=== PATIENT | male | born 1995 | race Two or more races ===

== ENCOUNTER → 2023-05-16 13:43 | Outpatient (REF) | payer OTHER, MEDICAID, SELFPAY | LOC: HO.SL 13:43 | PROVIDERS: PCP General Practice; Visit Provider General Practice | DX: R06.83 Snoring (principal); R40.0 Somnolence | CPT/HCPCS: 95806 ==

== ENCOUNTER → 2023-05-16 19:00 | Outpatient (BNV) | payer OTHER, SELFPAY | PROVIDERS: PCP General Practice; Visit Provider Internal Medicine | DX: R06.83 Snoring (principal); R40.0 Somnolence | CPT/HCPCS: 95806 ==

== ENCOUNTER 2025-01-04 12:58 | Outpatient (AMB) | payer OTHER, MEDICAID, SELFPAY ==
--- OUTSIDE RECORDS SUMMARY | 2025-01-04 13:03 | XMS_ITS | Clinical Summary ---
Author Organization [facility] it[facility] Address [address] [place] [address] Care Team Providers Care Vascular Ultrasound Technician Name Role Phone Unavailable Primary Care Provider Unavailabl e Social History Tobacco Use Types Packs/Day Years Used Date Smoking Tobacco: Never Assessed Sex and Gender Information Value Date Recorded Sex Assigned at Not on file Legal Sex Male 2:20 AM EST Gender Identity Not on file Sexual Orientation Not on file Plan of Treatment Health Maintenance Due Date Last Done Comments DTaP,Tdap,and Td Vaccines (1 - Tdap) 2014 Hepatitis B Vaccines (1 of 3 - 19+ 3-dose series) 2014 COVID-19 Vaccine (2023-2 5 season) 2024 Depression Screening 05/27/2024 Influenza Vaccine (#1) 2025 HIB Vaccines Aged Out No longer eligi ble based on patient's age to complete this topic HPV Vaccines Aged Out No longer eligi ble based on patient's age to complete this topic Hepatitis A Vaccines Aged Out No long er eligible based on patient's age to complete this topic IPV Vaccines Aged Out No longer eligi ble based on patient's age to complete this topic MMR Vaccines Aged Out No longer eligi ble based on patient's age to complete this topic Meningococcal ACWY Vaccine Aged Out N o longer eligible based on patient's age to complete this topic Meningococcal B Vaccine Aged Out No l onger eligible based on patient's age to complete this topic Pneumococcal Vaccine: Pediat rics (0 to 5 Years) and At-Risk Patients (6 to 49 Years) Aged Out No longer eligible b ased on patient's age to complete this topic RSV Immunization Patients Un jay 20 months Aged Out No longer eligible b ased on patient's age to complete this topic Varicella Vaccines Aged Out No longer eligible based on patient's age to complete this topic Advance Directives Documents on File Type Date Recorded Patient Imaging Engineer Expl anation Health Care Decision (hx) 03/24/2018 AD CHOLO DIRECTIVE
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
--- OUTSIDE RECORDS SUMMARY | 2025-01-04 13:03 | XMS_ITS | Encounter Summary ---
Author Organization [facility] Address [address] [place] [address] [address] [address] Care Team Providers Care Hand Clerical Verifier Name Role Phone Keesha Apodaca MD Primary Care Provider [phone] Reason for Visit * Reason Onset Date Comments Appointment Request 08/15/2022 Encounter Details Date Type Department Care Team (Late Contact Info) Description 08/15/2022 Telephone [facility] MEDICINE [address], [place] [id number] Keesha Apodaca MD [address] [place] [address] Appointment Request Social History Tobacco Use Types Packs/Day Years Used Date Smoking Tobacco: Never Assessed Sex and Gender Information Value Date Recorded Sex Assigned at Male 03/26/2022 10:37 AM EDT Legal Sex Male 10:37 AM EDT Gender Identity Male 03/26/2022 10:37 AM EDT Sexual Orientation Choose not to disclose 2021 10:37 AM EDT documented as of this encounter Miscellaneous Notes * Telephone Encounter - Gerald Barney - 08/15/2022 10:27 AM EDT Tc from pt requesting a physical exam. Mainframe Systems Administrator attempted to book with PCP, no available appts. Pt states wont mind being seeing by a different provider. Please contact pt at [phone] documented in this encounter Plan of Treatment Upcoming Encounters Date Type Department Care Team (Late st Contact Info) Description 02/19/2025 10:30 AM EDT Office Visit [facility] MEDICINE [address] [place] [address] Keesha Apodaca MD [address] [place] [address] documented as of this encounter Visit Diagnoses Not on filedocumented in this encounter Care Teams Hand Clerical Verifier Relationship Specialty Start Date End Date Keesha Apodaca MD [address] [place] [address] PCP - General Family Medicine 07/01/20 documented as of this encounter
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
== END 2025-01-04 13:26 | disposition home or self-care (01) ==
LOC: HO.HSM 12:58
PROVIDERS: PCP General Practice; Referring Provider General Practice; Visit Provider Psychiatry & Neurology Neurology
DX: S06.9X6S Unspecified intracranial injury with loss of consciousness greater than 24 hours without return to pre-existing conscious level with patient surviving, sequela (principal)
CPT/HCPCS: 99214